=== PATIENT | male | born 1990 | race Caucasian/White ===

== ENCOUNTER 2021-10-01 02:36 | Emergency (ER) | payer BC ==
[2021-10-01 03:34] LABS: ANION GAP 11.6 meq/L (7-15); CHLORIDE,CL 103 mmol/L (98-107); SODIUM,NA 141 mmol/L (136-145)
[2021-10-01 03:53] LABS: BARBITURATE SCREEN,URINE NEGATIVE (NEGATIVE); BENZODIAZEPINES SCREEN,URINE NEGATIVE (NEGATIVE); EDDP,URINE SCREEN NEGATIVE (NEGATIVE); TCA SCREEN,URINE NEGATIVE (NEGATIVE); THC SCREEN,URINE 50 NG/ML POSITIVE (NEGATIVE)
[2021-10-01 03:54] LABS: BUPRENORPHINE SCREEN,URINE NEGATIVE (NEGATIVE)
== END 2021-10-01 05:45 | disposition home or self-care (01) ==
LOC: LL.ED 02:36
DX: F41.9 Anxiety disorder, unspecified (principal); I10 Essential (primary) hypertension
CPT/HCPCS: 36415; 80053; 80305-QW; 80307; 82550; 84484; 85025; 85379; 86140; 93005; 93010; 99284; 99285-25

== ENCOUNTER 2022-01-12 17:25 | Emergency (ER) | payer BC ==
[2022-01-12] MEDS: Tetracaine HCl/PF 0.5% 4 ML Bottle ONE (17:45)
[2022-01-12] MEDS: Erythromycin Base 0.5% Ophth Oint 3.5 GM Tube EYEBOTH ONE (19:20)
== END 2022-01-12 19:40 | disposition home or self-care (01) ==
LOC: LL.ED 17:25
DX: H18.823 Corneal disorder due to contact lens, bilateral (principal)
CPT/HCPCS: 99283; A9270